=== PATIENT | male | born 1990 | race Caucasian/White ===

== ENCOUNTER 2019-05-05 17:11 | Emergency (ER) | payer OTHER, SELFPAY ==
[2019-05-05 17:12] VITALS: BP 132/85; PULSE 114; RESP 18; TEMP 37; O2SAT 98; BMI 32.4
--- NOTE | 2019-05-05 17:17 | NURSING ---
NO OLD EKGS
--- NOTE | 2019-05-05 17:20 | EKG12_ITS ---
Test Reason : Blood Pressure : / mmHG Vent. Rate : 107 BPM Atrial Rate : 107 BPM P-R Int : 146 ms QRS Dur : 078 ms QT Int : 322 ms P-R-T Axes : 024 042 024 degrees QTc Int : 429 ms Sinus tachycardia Otherwise normal ECG Confirmed by BARBARA JUAREZ, KRUPA ([id number]), videotape editor DARCIE MESA ([id number]) on 05/10/2019 8:45:19 AM Referred By: EZE Confirmed By:KRUPA JIMENEZ MD
--- NOTE | 2019-05-05 17:25 | RAD_ITS ---
STUDY: X-RAY CHEST REASON FOR EXAM: Male, 29 years old. Coughing up blood. TECHNIQUE: Single AP portable view of the chest. COMPARISON: None. FINDINGS: The lungs are clear and expanded. There is no demonstrated pleural abnormality. Normal size heart. Normal mediastinum and bobby. Normal visualized pulmonary arteries. Normal visualized aortic arch and descending thoracic aorta. Normal visualized thoracic spine. Normal visualized ribs, clavicles, and shoulders. There is no demonstrated abnormality of the visualized soft tissue structures of the upper abdomen. RAD/Chest 1 View (Portable) IMPRESSION: Normal x-ray examination of the chest. Electronically Signed: Cam Mayen MD at 17:42 EDT , Service support ,
[2019-05-05 17:31] VITALS: PULSE 112; RESP 20
[2019-05-05] MEDS: Ipratropium/Albuterol Sulfate 3 ML AMPUL.NEB INHALATION (17:31)
[2019-05-05] MEDS: 0.9% Normal Saline 1,000 ML 999 ML IV (17:40)
[2019-05-05 17:55] LABS: Absolute Neutrophil Count 5.2 X10^3/uL (2.0-7.7); Basophil# 0.02 X10^3/uL; Basophil% 0.2 % (0-1); Eosinophil# 0.29 X10^3/uL; Eosinophils% 3.2 % (0-5); Hematocrit 43.7 % (40-54); Hemoglobin 14.9 g/dl (13.0-16.5); Lymphocyte % 28.4 % (19-41); Mean Corp Hgb Conc 34.1 g/gl (32-36); Mean Corpuscular Hgb 30.6 pg (27.0-32.0); Mean Corpuscular Volume 89.7 fL (80-94); Monocyte# 1.02 X10^3/uL; Monocyte% 11.1 % (0-10); Neutrophil # 5.22 X10^3/uL (2.7-7.7); POSITIVE COUNT NO; POSITIVE DIFFERENTIAL NO; POSITIVE MORPHOLOGY NO; Platelet Count 208 K/mm3 (150-450); RBC Distribution Width CV 13.3 % (11.6-14.6); RBC Distribution Width SD 43.7 fl (35.1-43.9); Red Blood Count 4.87 M/mm3 (4.6-6.2); White Blood Count 9.2 K/mm3 (4.4-11.0)
[2019-05-05 18:04] LABS: Anion Gap 6 (5-15); BUN 16 mg/dL (7-18); BUN/Creat Ratio 15.4 RATIO (10-20); Calcium,Total 9.3 mg/dL (8.5-10.1); Chloride 105 mmol/L (98-107); Creatinine, Serum 1.04 mg/dL (0.70-1.30); EST Glomerular Filtration Rate 89 mL/min (>60); Est Glom Filt Rate - Afr Amer 107 mL/min (>60); Estimated Creatinine Clearance 89.52 ml/min; Glucose 91 mg/dL (74-106); Potassium 3.8 mmol/L (3.5-5.1); Sodium Level 140 mmol/L (136-145)
[2019-05-05 18:21] LABS: BNP,B-Type NATRIURETIC PEPTIDE 2.1 pg/mL (0-100)
--- NOTE | 2019-05-05 18:32 | ED.VIS.GEN ---
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 intake because of the harsh coughing but has no specific complaints this time Past Medical History - Allergies and Home Meds Allergies/Adverse Reactions: Allergies Penicillins Allergy (Verified 05/05/19 17:13) Hives Primary Care Physician: Care Physician,No Primary [Primary Care Provider] - Past Medical History: None Review of Systems General: Denies: Chills, Fever, Sweats Eyes: Denies: Visual changes - bilaterally, Diplopia ENT: Reports: Rhinorrhea. Denies: Sore throat Cardiovascular: Reports: Palpitations. Denies: Chest pain Respiratory: Reports: Cough. Denies: Dyspnea, Dyspnea on exertion Gastrointestinal: Denies: Abdominal pain, Nausea, Vomiting, Diarrhea, Melena, Hematochezia Genitourinary: Denies: Dysuria, Hematuria, Frequency Musculoskeletal: Denies: Back pain, Extremity Pain Skin: Denies: Rash, Wounds Neurological: Denies: Headache, Weakness, Numbness Physical Exam Vital Signs/Narrative: Vital Signs Temp Pulse Resp BP Pulse Ox 05/05/19 17:31 112 H 20 H 05/05/19 17:12 98.6 F 114 H 18 132/85 H 98 General: Well nourished, Well developed, No Acute Distress Head: Normocephalic, Atraumatic Eyes: Perrl, EOMI ENT: Moist mucous membranes, No rhinorrhea Neck: Supple, Nontender Cardiovascular: Regular rate, Regular rhythm, No murmurs Respiratory: No distress, CTA bilaterally, Chest nontender, - - Is resting comfortably the bed he has excellent excursion his nose is congested his lungs sound clear his general physical exam is unremarkable when he is not coughing he feels at his baseline and currently he is up not coughing not bringing up any mucus Abdomen: Soft, Nontender, Nondistended, Normal bowel sounds Back: Nontender, Normal Inspection Extremities: Nontender, No edema Skin: Normal color, No rash Neurological: Alert, Oriented x3, Cranial nerves II-XII grossly intact, Normal Strength, Normal Sensation Psychological: Normal affect, Normal Mood Diagnostic/Tx/Re-eval Chest X-Ray - ED: 1 View, Normal, Heart, Lungs - Rhythm Strip Rhythm Strip: Sinus Rhythm - Medical Decision Making The patient's screening labs chest x-ray are all unremarkable see those reports EKG shows a sinus with nothing acute, He is been treated with aerosols at this time there is no signs of anything life-threatening or acute he feels couple discharge home, he will be given a prescription for Levaquin as a [id number] medication Flonase Proventil and asked to follow-up with his outpatient providers tomorrow the next day and return for change in symptoms if he does not improve with these conservative medications he will start the Thursday or Thursday ED Disposition - Plan for ED Patient: Diagnosis: URI, acute Instructions: ED Reactive Airway Disease, ED Upper Resp Infec Abx Tx Prescriptions: Albuterol Inhaler [Ventolin Hfa] 1 - 2 puff INHALATION Q4H PRN PRN #1 inhaler PRN Reason: Wheezing Fluticasone 0.05% [Flonase Nasal [place]] 1 spray NASAL DAILY #1 nasal.sry levoFLOXacin tablet [Levaquin tablet] 750 mg PO DAILY #10 tab Referrals: Care Physician,No Primary [Primary Care Provider] - Manolo Melendez MD [STAFF PHYSICIAN] -
--- NOTE | 2019-05-05 18:38 | ED.DCSUM_ITS ---
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 intake because of the harsh coughing but has no specific complaints this time Past Medical History - Allergies and Home Meds Allergies/Adverse Reactions: Allergies Penicillins Allergy (Verified 05/05/19 17:13) Hives Primary Care Physician: Care Physician,No Primary [Primary Care Provider] - Past Medical History: None Review of Systems General: Denies: Chills, Fever, Sweats Eyes: Denies: Visual changes - bilaterally, Diplopia ENT: Reports: Rhinorrhea. Denies: Sore throat Cardiovascular: Reports: Palpitations. Denies: Chest pain Respiratory: Reports: Cough. Denies: Dyspnea, Dyspnea on exertion Gastrointestinal: Denies: Abdominal pain, Nausea, Vomiting, Diarrhea, Melena, Hematochezia Genitourinary: Denies: Dysuria, Hematuria, Frequency Musculoskeletal: Denies: Back pain, Extremity Pain Skin: Denies: Rash, Wounds Neurological: Denies: Headache, Weakness, Numbness Physical Exam Vital Signs/Narrative: Vital Signs Temp Pulse Resp BP Pulse Ox 05/05/19 17:31 112 H 20 H 05/05/19 17:12 98.6 F 114 H 18 132/85 H 98 General: Well nourished, Well developed, No Acute Distress Head: Normocephalic, Atraumatic Eyes: Perrl, EOMI ENT: Moist mucous membranes, No rhinorrhea Neck: Supple, Nontender Cardiovascular: Regular rate, Regular rhythm, No murmurs Respiratory: No distress, CTA bilaterally, Chest nontender, - - Is resting comfortably the bed he has excellent excursion his nose is congested his lungs sound clear his general physical exam is unremarkable when he is not coughing he feels at his baseline and currently he is up not coughing not bringing up any mucus Abdomen: Soft, Nontender, Nondistended, Normal bowel sounds Back: Nontender, Normal Inspection Extremities: Nontender, No edema Skin: Normal color, No rash Neurological: Alert, Oriented x3, Cranial nerves II-XII grossly intact, Normal Strength, Normal Sensation Psychological: Normal affect, Normal Mood Diagnostic/Tx/Re-eval Chest X-Ray - ED: 1 View, Normal, Heart, Lungs - Rhythm Strip Rhythm Strip: Sinus Rhythm - Medical Decision Making The patient's screening labs chest x-ray are all unremarkable see those reports EKG shows a sinus with nothing acute, He is been treated with aerosols at this time there is no signs of anything life-threatening or acute he feels couple discharge home, he will be given a prescription for Levaquin as a [id number] medication Flonase Proventil and asked to follow-up with his outpatient providers tomorrow the next day and return for change in symptoms if he does not improve with these conservative medications he will start the Thursday or Thursday ED Disposition - Plan for ED Patient: Diagnosis: URI, acute Instructions: ED Reactive Airway Disease, ED Upper Resp Infec Abx Tx Prescriptions: Albuterol Inhaler [Ventolin Hfa] 1 - 2 puff INHALATION Q4H PRN PRN #1 inhaler PRN Reason: Wheezing Fluticasone 0.05% [Flonase Nasal [place]] 1 spray NASAL DAILY #1 nasal.sry levoFLOXacin tablet [Levaquin tablet] 750 mg PO DAILY #10 tab Referrals: Care Physician,No Primary [Primary Care Provider] - Manolo Melendez MD [STAFF PHYSICIAN] -
[2019-05-05 19:13] VITALS: BP 145/90; PULSE 101; RESP 18; O2SAT 95
== END 2019-05-05 19:14 | disposition home or self-care (01) ==
PROVIDERS: Emergency Provider Emergency Medicine
DX: J06.9 Acute upper respiratory infection, unspecified (principal)
CPT/HCPCS: 71045; 80048; 83880; 84484; 85025; 93005; 94640; 96360; 96361; 99284; J7030

== ENCOUNTER 2021-05-25 01:11 | Emergency (ER) | payer MEDICAID, SELFPAY ==
[2021-05-25 01:11] VITALS: BP 158/113; PULSE 103; RESP 16; TEMP 36.4; O2SAT 98; BMI 49.4
--- NOTE | 2021-05-25 01:23 | RAD_ITS ---
EXAM: XR LEFT FOOT COMPLETE, 3 OR MORE VIEWS : 1990 CLINICAL INDICATION: injury TECHNIQUE: Frontal, lateral and oblique views of the left foot. This report was created using [employer] report generation technology. COMPARISON: None. FINDINGS: BONES/JOINTS: Unremarkable. No acute fracture. No subluxation. Normal alignment. Preservation of the joint space. No sclerotic or destructive changes observed. SOFT TISSUES: Unremarkable. No soft tissue swelling or gas. No radiopaque foreign body. RAD/Foot min 3 Views IMPRESSION: Negative left foot x-rays. at 0317 Reported and signed by: Mikal Weiss MD Electronically Signed: Mikal Weiss MD at 3:15 EDT Tel , Service support ,
--- NOTE | 2021-05-25 01:24 | RAD_ITS ---
EXAM: XR CHEST, 1 VIEW : 1990 CLINICAL INDICATION: chest pain TECHNIQUE: Frontal view of the chest. This report was created using [employer] report generation technology. COMPARISON: 05/05/2019 FINDINGS: LUNGS AND PLEURAL SPACES: Unremarkable. No consolidation or edema. No pneumothorax. No effusion. HEART: Unremarkable. Cardiac silhouette not enlarged. MEDIASTINUM: Central airways and mediastinal contour are unremarkable. BONES/JOINTS: Unremarkable. SOFT TISSUES: Unremarkable. RAD/Chest 1 View (Portable) IMPRESSION: No radiographic evidence of acute cardiopulmonary disease. at 0316 Reported and signed by: Mikal Weiss MD Electronically Signed: Mikal Weiss MD at 3:15 EDT Tel , Service support ,
--- NOTE | 2021-05-25 01:24 | EKG12_ITS ---
Test Reason : CP Blood Pressure : / mmHG Vent. Rate : 097 BPM Atrial Rate : 097 BPM P-R Int : 150 ms QRS Dur : 082 ms QT Int : 330 ms P-R-T Axes : 027 041 019 degrees QTc Int : 419 ms Normal sinus rhythm Normal ECG Confirmed by PILY JUAREZ, RAMONA ([id number]), acquisitions editor DARCIE MESA ([id number]) on 05/29/2021 10:42:29 AM Referred By: LACIE Confirmed By:RAMONA NASCIMENTO MD
[2021-05-25 01:55] LABS: Absolute Lymphocyte Count 2.04 X10^3/uL (0.83-4.51); Absolute Neutrophil Count 4.4 X10^3/uL (2.0-7.7); Basophil# 0.04 X10^3/uL; Basophil% 0.5 % (0-1); Eosinophil# 0.14 X10^3/uL; Eosinophils% 1.9 % (0-5); Hematocrit 41.2 % (40-54); Hemoglobin 13.9 g/dL (13.0-16.5); Lymphocyte # 2.04 X10^3/ul (0.83-4.51); Mean Corp Hgb Conc 33.7 g/dL (32-36); Mean Corpuscular Hgb 30.4 pg (27.0-32.0); Mean Corpuscular Volume 90.2 fL (80-94); Mean Platelet Vol. 11.1 fl (6.2-12.0); Monocyte% 8.2 % (0-10); NRBC Flagged by Analyzer 0 % (0-5); Neutrophil # 4.44 X10^3/uL (2.7-7.7); Platelet Count 168 K/mm3 (150-450); RBC Distribution Width CV 12.5 % (11.6-14.6); RBC Distribution Width SD 40.7 fl (35.1-43.9); Red Blood Count 4.57 M/mm3 (4.6-6.2); White Blood Count 7.3 K/mm3 (4.4-11.0)
[2021-05-25 02:12] LABS: Anion Gap 5 (5-15); BUN 12 mg/dL (7-18); BUN/Creat Ratio 12.9 RATIO (10-20); Calcium,Total 9.3 mg/dL (8.5-10.1); Chloride 105 mmol/L (98-107); Creatinine, Serum 0.93 mg/dL (0.70-1.30); EST Glomerular Filtration Rate 99 mL/min (>60); Est Glom Filt Rate - Afr Amer 120 mL/min (>60); Glucose 241 mg/dL (74-106); Potassium 3.6 mmol/L (3.5-5.1); Sodium Level 140 mmol/L (136-145); Troponin-I HS 4.8 pg/mL (3.0-78.5)
--- NOTE | 2021-05-25 02:14 | RAD_ITS ---
[employer] Unformatted Report Format: Options: n 2f 2i act cap dr krause wm wcta sl lj Gender: Male : 1990 Exam: XR Ankle Min 3 Views Left Comparison: History: injury Contrast: There is soft tissue swelling over the medial and lateral malleolus. Impression. Soft tissue swelling with no osseous abnormalities. at 0308 Reported and signed by: Mikal Weiss MD Electronically Signed: Mikal Weiss MD at 3:07 EDT Tel , Service support , RAD/Ankle min 3 Views
--- NOTE | 2021-05-25 03:11 | EX.ED.DYSGE1 ---
HPI History of Present Illness Chief Complaint: Lower Extremity Injury Detail of Chief Complaint: Left ankle pain and chest pain Informant: patient Onset/Context/Timing Onset: Today Context: Sudden Onset Current Severity: Mild Maximum Severity: Moderate Narrative Narrative: Patient presents secondary to left ankle pain. He rolled his left ankle while walking tonight. He has been able to bear weight but has antalgic gait. He denies any other injury. also mentions the patient has been complaining of chest pain for the past couple weeks. He states it will come on rather abruptly, last just a few seconds, and then resolve. [facility] Medical History GERD (gastroesophageal reflux disease) Home Medications albuterol sulfate 1 - 2 puff INHALATION Q4H PRN PRN #1 inhaler 05/05/19 [Rx Last Taken Unknown] fluticasone propionate 1 spray NASAL DAILY #1 nasal.sry 05/05/19 [Rx Last Taken Unknown] hydrocodone-acetaminophen 1 tab PO Q6H PRN 3 Days #10 tab 05/25/21 [Rx Last Taken Unknown] naproxen [Naprosyn] 500 mg PO BID PRN #20 tab 05/25/21 [Rx Last Taken Unknown] omeprazole 40 mg PO DAILY 05/25/21 [History Last Taken Unknown] Allergy/AdvReac Type Severity Reaction Status Date / Time Penicillins Allergy Hives Verified 05/25/21 01:13 Social History Smoking Status: Never smoker ROS ROS ED Constitutional Constitutional ED: Denies chills or fever(s) Eyes Eyes: Denies change in vision ENT ENT ED: Denies sore throat Cardiovascular Cardiovascular: Reports chest pain; Denies palpitations or racing heartbeat Respiratory/Chest Respiratory/Chest: Denies cough or dyspnea Gastrointestinal Gastrointestinal: Denies abdominal pain, diarrhea, nausea or vomiting Genitourinary Genitourinary ED: Denies dysuria Musculoskeletal Musculoskeletal: Reports arthralgias; Denies back pain Integumentary Denies rash Neurologic Neurologic: Denies headache(s) or weakness Psychiatric Psychiatric: Denies anxiety or depression Endocrine Endocrinology: Denies polydipsia or polyuria Allergic/Immunologic Allergic/Immunologic ED: Denies urticaria EXAM Physical Exam Const Vital Signs: 05/25/21 01:11 05/25/21 01:52 05/25/21 03:21 Temperature 97.6 F L Temperature Source Temporal Pulse Rate 103 H 97 Respiratory Rate 16 18 Blood Pressure 158/113 H 161/108 H Blood Pressure Mean 128 Pulse Ox 98 97 Oxygen Delivery Method Room Air Room Air Positive well nourished and well developed General Appearance ED: well developed HEENT Reports normocephalic and head/scalp atraumatic Eyes PERRL and EOMs intact bilaterally Neck supple Chest Wall inspection of chest normal and palpation of chest normal Resp normal respiratory effort and clear to auscultation bilaterally Cardio regular rate and regular rhythm GI normal to inspection, nondistended, normoactive bowel sounds Palpation: soft Extremity Extremity Narrative: Tenderness palpation left lateral malleolus. Mild edema noted. No tenderness of the proximal fibula. Neuro oriented x3 and no sensory deficits noted Sensorium / Orientation: alert Motor Exam: strength 5/5 throughout Psych mental status grossly normal Skin no rashes or lesions noted MDM MDM MDM Narrative Medical decision making narrative: EKG, chest x-ray, labs are ordered to evaluate his chest pain. Left foot and ankle x-rays are ordered to evaluate his injury. Lab Data Attestation: I reviewed the patient's lab results. Labs: Laboratory Results - last 24 hr 05/25/21 05/25/21 01:50 01:50 WBC 7.3 RBC 4.57 L Hgb 13.9 Hct 41.2 MCV 90.2 MCH 30.4 MCHC 33.7 RDW Std Deviation 40.7 RDW Coeff of Abi 12.5 Plt Count 168 MPV 11.1 Immature Gran % (Auto) 0.400 Neut % (Auto) 61.0 Lymph % (Auto) 28.0 [place] % (Auto) 8.2 Eos % (Auto) 1.9 Baso % (Auto) 0.5 Absolute Neuts (auto) 4.4 Absolute Lymphs (auto) 2.04 Nucleated RBC % 0 Sodium 140 Potassium 3.6 Chloride 105 Carbon Dioxide 30.0 Anion Gap 5 BUN 12 Creatinine 0.93 Estim Creat Clear Calc 94.60 Est GFR (MDRD) Af Amer 120 Est GFR (MDRD) Non-Af 99 BUN/Creatinine Ratio 12.9 Glucose 241 H Calcium 9.3 Troponin I High Sens 4.8 Radiography Chest X-Ray - ED: 1 View, Read by ED Physician, Normal, Heart, Lungs and Mediastinum Diagnostic Testing: Radiology Impression Foot X-Ray 05/25/21 01:23 IMPRESSION: Negative left foot x-rays. at 0317 Reported and signed by: Mikal Weiss MD Electronically Signed: Mikal Weiss MD at 3:15 EDT Tel , Service support , Chest X-Ray 05/25/21 01:24 IMPRESSION: No radiographic evidence of acute cardiopulmonary disease. at 0316 Reported and signed by: Mikal Weiss MD Electronically Signed: Mikal Weiss MD at 3:15 EDT Tel , Service support , Ankle X-Ray 05/25/21 02:14 EKG Initial EKG: Attestation: I personally reviewed and interpreted this EKG as follows: Interpretation: Sinus Rhythm (Sinus at 97 with no acute ischemia.) Treatment and Re-Evaluation Comments:: Patient had taken ibuprofen prior to arrival. Ice pack is applied to the left ankle. Left foot and ankle x-rays per my interpretation reveal no acute fracture. Chest x-ray reveals no acute cardiopulmonary disease. Test results discussed with patient and family at bedside. Cardiac work-up was unremarkable. Air stirrup splint is applied. Patient declines crutches. Prescriptions for analgesics are sent to the pharmacy for him. Discharge Plan Triage Chief Complaint: Lower Extremity Injury ED Provider: Kat Montoya Dx/Rx/DC Orders Clinical Impression: Left ankle sprain, Chest pain Instructions: ED Chest Pain, Noncardiac, ED Ankle Sprain (Adult) Prescriptions: New naproxen [Naprosyn] 500 mg tablet 500 mg PO BID PRN (Reason: pain) Qty: 20 RF: 0 hydrocodone-acetaminophen 5-325 mg tablet 1 tab PO Q6H PRN (Reason: pain) 3 Days Qty: 10 RF: 0 No Action albuterol sulfate 1 INHALER inhaler 1 - 2 puff inhalation Q4H PRN PRN (Reason: Wheezing) Qty: 1 RF: 0 fluticasone propionate 1 SPRAY spray,suspension 1 spray NASAL DAILY Qty: 1 RF: 0 omeprazole 40 mg capsule,delayed release(DR/EC) 40 mg PO DAILY RF: 0 Primary Care Provider: Elizabet Wright NP Referrals: Ryan Jimenez DO [STAFF PHYSICIAN] - 1 Week if not improving Elizabet Wright NP, [facility] [Primary Care Provider] - Disposition Disposition: Home, Self Care Discharge Date/Time: 05/25/21 03:27
[2021-05-25 03:21] VITALS: BP 161/108; PULSE 97; RESP 18; O2SAT 97
== END 2021-05-25 03:27 | disposition home or self-care (01) ==
PROVIDERS: Emergency Provider Emergency Medicine; PCP Nurse Practitioner Family
DX: S93.402A Sprain of unspecified ligament of left ankle, initial encounter (principal); R07.9 Chest pain, unspecified; K21.9 Gastro-esophageal reflux disease without esophagitis; X50.1XXA Overexertion from prolonged static or awkward postures, initial encounter; Y93.01 Activity, walking, marching and hiking; Y92.89 Other specified places as the place of occurrence of the external cause; Y99.8 Other external cause status
CPT/HCPCS: 71045; 73610; 73630; 80048; 84484; 85025; 93005; 99285; A4216

== ENCOUNTER 2021-08-05 21:57 | Emergency (ER) | payer MEDICAID, SELFPAY ==
[2021-08-05 21:57] VITALS: BP 132/59; PULSE 96; RESP 18; TEMP 37.4; O2SAT 95; BMI 42.9
--- NOTE | 2021-08-05 22:15 | ED.RN ---
pt yells out from waiting room nurse how much longer im in so much pain emotional support provided, patient told that staff was cleaning multiple rooms at this time for patients. pt yells this is ridiculous im in so much pain pt begins to hyperventilate, patient instructed to slow down his breathing. continued emotional support provided. Will continue to monitor until patient is placed in ED room.
--- NOTE | 2021-08-05 22:40 | CT_ITS ---
STUDY: CT ABDOMEN AND PELVIS WITH CONTRAST REASON FOR EXAM: Male, 31 years old. LLQ pain RADIATION DOSAGE (If Supplied By Facility): CTDIvol = ( 20.40 ) mGy, DLP = ( 1364.47 ) mGycm TECHNIQUE: Transaxial images were obtained from the dome of the diaphragm to the symphysis pubis without oral contrast. IV 100mL Isovue-300 was administered. Sagittal and coronal images were reconstructed. Individualized dose optimization techniques were used for this CT. COMPARISON: None. FINDINGS: Minimal posterior dependent atelectasis. Remainder of the lung bases are clear. Normal cardiac size. Cystic structure along the right heart border measuring 6.4 x 2.3 cm compatible with pericardial cyst. Diffuse fatty liver, otherwise normal liver. Normal gallbladder and extrahepatic biliary system. Normal spleen. Normal pancreas. Normal bilateral adrenal glands. Normal right kidney. Normal left kidney. Normal visualized stomach. Nonspecific mild distention of the small bowel with borderline thickening of the wall, cannot exclude enteritis. Normal colon. The appendix is visualized and appears normal. Normal abdominal aorta. Normal inferior vena cava. Normal retroperitoneum. Normal urinary bladder. Normal visualized prostate gland. Normal abdominal wall. Normal osseous structures. CT/Abdomen/Pelvis W IV Cont ONLY IMPRESSION: Possible mild nonspecific enteritis. No acute appendicitis or bowel obstruction. Mild diffuse fatty liver. Remainder of abdominal viscera are unremarkable. Electronically Signed: Shavon Pritchett MD at 0:50 EDT , Service support ,
[2021-08-05] MEDS: 0.9% Normal Saline 1,000 ML 1000 ML IV (23:01)
[2021-08-05] MEDS: Morphine 4 MG/ML Syringe IV (23:01)
[2021-08-05] MEDS: Ondansetron 4 MG/2 ML Vial IV (23:02)
[2021-08-05 23:04] LABS: Absolute Lymphocyte Count 0.92 X10^3/uL (0.83-4.51); Absolute Neutrophil Count 9.7 X10^3/uL (2.0-7.7); Basophil# 0.03 X10^3/uL; Basophil% 0.3 % (0-1); Eosinophil# 0.05 X10^3/uL; Eosinophils% 0.4 % (0-5); Hematocrit 45.8 % (40-54); Hemoglobin 15.1 g/dL (13.0-16.5); Lymphocyte # 0.92 X10^3/ul (0.83-4.51); Lymphocyte % 7.9 % (19-41); Mean Corpuscular Hgb 30.1 pg (27.0-32.0); Mean Corpuscular Volume 91.4 fL (80-94); Mean Platelet Vol. 11.1 fl (6.2-12.0); Monocyte# 0.94 X10^3/uL; Monocyte% 8.1 % (0-10); NRBC Flagged by Analyzer 0 % (0-5); Platelet Count 162 K/mm3 (150-450); RBC Distribution Width CV 12.4 % (11.6-14.6); RBC Distribution Width SD 41.3 fl (35.1-43.9); Red Blood Count 5.01 M/mm3 (4.6-6.2); White Blood Count 11.7 K/mm3 (4.4-11.0)
[2021-08-05 23:20] LABS: ALB/GLOB Ratio 0.9 RATIO (0.9-2.4); AST(SGOT) 70 U/L (15-37); Alanine Aminotransfer ALT/SGPT 222 U/L (16-61); Alkaline Phosphatase 86 U/L (45-117); Anion Gap 5 (5-15); BUN 14 mg/dL (7-18); BUN/Creat Ratio 15.1 RATIO (10-20); Calcium,Total 8.7 mg/dL (8.5-10.1); Chloride 103 mmol/L (98-107); Creatinine, Serum 0.93 mg/dL (0.70-1.30); EST Glomerular Filtration Rate 100 mL/min (>60); Est Glom Filt Rate - Afr Amer 120 mL/min (>60); Globulin 4.3 g/dL (2.2-4.2); Glucose 197 mg/dL (74-106); Lipase 128 U/L (73-393); Potassium 4.2 mmol/L (3.5-5.1); Protein, Total 8.3 g/dL (6.4-8.2); Sodium Level 138 mmol/L (136-145)
[2021-08-06 00:45] LABS: Red Blood Cells-Urine 0 SEEN /hpf (0-5); Squamous Epithelial Cells - UA 0 SEEN /hpf (0-5)
[2021-08-06 00:46] LABS: Color, Urine Yellow (Yellow); Glucose, Dipstick Normal (Normal); Ketone-Dipstick Negative (Negative); Leukocyte Esterase-Dipstick 25 /ul (Negative); Nitrite-Dipstick Negative (Negative); Occult Blood-Urine Negative /ul (Negative); Protein-Dipstick 15 mg/dl (Negative); Specific Gravity, Urine 1.015 (1.002-1.030); Urine Clarity Clear (Clear); Urine Urobilinogen 1 mg/dl (Normal)
[2021-08-06 00:48] LABS: Urine Bilirubin Dipstick 1 mg/dL (Negative)
[2021-08-06 00:49] VITALS: BP 138/75
[2021-08-06 01:01] LABS: Bacteria 2+ /hpf (None Seen); Hyaline Cast 0-5 SEEN /lpf (0-5); Mucous, Urine 2+ /hpf (<or=2+); White Blood Cells 0-5 SEEN /hpf (0-5)
--- NOTE | 2021-08-06 01:37 | ED.VIS.GI ---
HPI HPI - GI History of Present Illness Chief Complaint: Abd Pain Narrative Narrative: Patient presenting for evaluation secondary to abdominal pain. Patient states that over the course the last 24 hours he has had an onset of abdominal pain. He states that its been associated with nonbloody nonbilious emesis, as well as loose watery diarrhea. He woke up this morning with it, felt that he was getting better around noon and then stated that it again got worse throughout the course of the night. Patient states that he has crampy intermittent severe abdominal pain that he describes as sharp and locates in his left lower quadrant. No real exacerbating relieving factors no fevers no sick contacts. Patient does have a history of hernia surgery in the past. Review of systems otherwise negative. [facility] Medical History GERD (gastroesophageal reflux disease) Home Medications albuterol sulfate 1 - 2 puff INHALATION Q4H PRN PRN #1 inhaler 05/05/19 [Rx Last Taken Unknown] fluticasone propionate 1 spray NASAL DAILY #1 nasal.sry 05/05/19 [Rx Last Taken Unknown] hydrocodone-acetaminophen 1 tab PO Q6H PRN 3 Days #10 tab 05/25/21 [Rx Last Taken Unknown] naproxen [Naprosyn] 500 mg PO BID PRN #20 tab 05/25/21 [Rx Last Taken Unknown] omeprazole 40 mg PO DAILY 05/25/21 [History Last Taken Unknown] dicyclomine 20 mg PO TIDAC #20 capsule 08/06/21 [Rx Last Taken Unknown] ondansetron 4 mg PO Q8H PRN PRN #10 tab 08/06/21 [Rx Last Taken Unknown] Allergy/AdvReac Type Severity Reaction Status Date / Time Penicillins Allergy Hives Verified 08/05/21 22:01 Social History Smoking Status: Never smoker ROS ROS ED Constitutional Constitutional ED: Denies chills or fever(s) ENT ENT ED: Denies sore throat Cardiovascular Cardiovascular: Denies chest pain Respiratory/Chest Respiratory/Chest: Denies cough or dyspnea Gastrointestinal Gastrointestinal: Reports abdominal pain, diarrhea, nausea and vomiting Genitourinary Genitourinary ED: Denies dysuria, hematuria or urinary frequency Musculoskeletal Musculoskeletal: Denies myalgias Integumentary Denies rash Neurologic Neurologic: Denies paresthesias or weakness Psychiatric Psychiatric: Denies depression Endocrine Endocrinology: Denies polyuria Hematologic/Lymphatic Hematologic/Lymphatic: Denies easy bleeding or easy bruising Allergic/Immunologic Allergic/Immunologic ED: Denies urticaria EXAM Physical Exam Const Vital Signs: 08/05/21 21:57 08/06/21 00:49 Temperature 99.4 F H Temperature Source Oral Pulse Rate 96 Respiratory Rate 18 Blood Pressure 132/59 H 138/75 H Blood Pressure Mean 83 96 Pulse Ox 95 Oxygen Delivery Method Room Air Positive well nourished, well developed and obese Constitutional Narrative: Heavyset male who appears very uncomfortable who is lying in the right lateral decubitus position on my arrival in the room General Appearance ED: well developed and NAD Nutritional Appearance: obese HEENT Reports dry mucous membranes normocephalic and atraumatic Mouth ED: Yes dry mucous membranes Mouth: dry mucous membranes Eyes EOMs intact bilaterally General Eye ED: Negative for pale conjunctiva or scleral icterus Neck no lymphadenopathy and supple Resp normal respiratory effort and clear to auscultation bilaterally Cardio regular rate, regular rhythm, no murmurs and peripheral pulses 2+ throughout GI non-distended and no masses Palpation: soft and tender LLQ; Negative for guarding, rigid or rebound tenderness present Back/Spine no CVA tenderness Extremity full ROM General Extremety ED: Negative for edema General Extremity: Negative for edema Neuro moves all extremities and no sensory deficits noted Sensorium / Orientation: alert, oriented to person, oriented to place and oriented to time Motor Exam: strength 5/5 throughout Psych mental status grossly normal Skin Rashes: no rashes MDM MDM MDM Narrative Medical decision making narrative: Patient presenting for evaluation secondary to abdominal pain. He did have reproducible abdominal pain on physical exam, IV was established laboratory studies were obtained patient appeared clinically dry he was given IV fluids morphine and Zofran. CBC demonstrates modest leukocytosis at 11.7. Chemistry shows normal renal function no significant evidence of electrolyte derangement patient's ALT was modestly elevated at 222 AST at 70 bilirubin was found to be normal. Patient's urinalysis was negative for infection. A CT abdomen and pelvis was performed on the patient which shows some evidence of enteritis, but no evidence of diverticulitis or appendicitis or other acute inflammatory or surgical process. Repeat evaluation of the patient after medication shows significant improvement and a continued nonsurgical abdomen. Patient symptoms at this point likely are secondary to enteritis. Patient be discharged with a course of Zofran and Bentyl. He understands signs symptoms which to return, he was educated about a capital BRAT diet. Patient was discharged in stable condition. Lab Data Labs: Laboratory Results - last 24 hr 08/05/21 08/05/21 08/06/21 22:55 22:55 00:20 WBC 11.7 H RBC 5.01 Hgb 15.1 Hct 45.8 MCV 91.4 MCH 30.1 MCHC 33.0 RDW Std Deviation 41.3 RDW Coeff of Abi 12.4 Plt Count 162 MPV 11.1 Immature Gran % (Auto) 0.300 Neut % (Auto) 83.0 H Lymph % (Auto) 7.9 L [place] % (Auto) 8.1 Eos % (Auto) 0.4 Baso % (Auto) 0.3 Absolute Neuts (auto) 9.7 H Absolute Lymphs (auto) 0.92 Nucleated RBC % 0 Sodium 138 Potassium 4.2 Chloride 103 Carbon Dioxide 30.0 Anion Gap 5 BUN 14 Creatinine 0.93 Estim Creat Clear Calc 94.60 Est GFR (MDRD) Af Amer 120 Est GFR (MDRD) Non-Af 100 BUN/Creatinine Ratio 15.1 Glucose 197 H Calcium 8.7 Total Bilirubin 0.40 AST 70 H ALT 222 H Alkaline Phosphatase 86 Total Protein 8.3 H Albumin 4.0 Globulin 4.3 H Albumin/Globulin Ratio 0.9 Lipase 128 Urine Color Yellow Urine Clarity Clear Urine pH 5.0 Ur Specific [place] 1.015 Urine Protein 15 H Urine Glucose (UA) Normal Urine Ketones Negative Urine Occult Blood Negative Urine Nitrite Negative Urine Bilirubin 1 H Urine Urobilinogen 1 H Ur Leukocyte Esterase 25 H Urine RBC 0 SEEN Urine WBC 0-5 SEEN Ur Squamous Epith Cells 0 SEEN Urine Bacteria 2+ Hyaline Casts 0-5 SEEN Urine Mucus 2+ Radiography Diagnostic Testing: Radiology Impression Abdomen/Pelvis CT 08/05/21 22:40 IMPRESSION: Possible mild nonspecific enteritis. No acute appendicitis or bowel obstruction. Mild diffuse fatty liver. Remainder of abdominal viscera are unremarkable. Electronically Signed: Shavon Pritchett MD at 0:50 EDT , Service support , Discharge Plan Triage Chief Complaint: Abd Pain ED Provider: James Simpson Dx/Rx/DC Orders Clinical Impression: Enteritis Instructions: ED Gastroenteritis, Noninfectious Prescriptions: New dicyclomine 10 mg capsule 20 mg PO TIDAC Qty: 20 RF: 0 ondansetron 4 mg tablet,disintegrating 4 mg PO Q8H PRN PRN (Reason: Nausea) Qty: 10 RF: 0 No Action albuterol sulfate 1 INHALER inhaler 1 - 2 puff inhalation Q4H PRN PRN (Reason: Wheezing) Qty: 1 RF: 0 fluticasone propionate 1 SPRAY spray,suspension 1 spray NASAL DAILY Qty: 1 RF: 0 omeprazole 40 mg capsule,delayed release(DR/EC) 40 mg PO DAILY RF: 0 naproxen [Naprosyn] 500 mg tablet 500 mg PO BID PRN (Reason: pain) Qty: 20 RF: 0 hydrocodone-acetaminophen 5-325 mg tablet 1 tab PO Q6H PRN (Reason: pain) 3 Days Qty: 10 RF: 0 Stand Alone Forms: ED Work / School Excuse Primary Care Provider: Elizabet Wright NP Referrals: Elizabet Wright NP, PRODUCT DEVELOPMENT TECHNICIAN-C [Primary Care Provider] - 3-5 Days if not improving Disposition Disposition: Home, Self Care Discharge Date/Time: 08/06/21 01:55
[2021-08-06] MEDS: Ondansetron 4 MG/2 ML Vial IV (01:55)
== END 2021-08-06 01:55 | disposition home or self-care (01) ==
PROVIDERS: Emergency Provider Emergency Medicine; PCP Nurse Practitioner Family
DX: K52.9 Noninfective gastroenteritis and colitis, unspecified (principal); K21.9 Gastro-esophageal reflux disease without esophagitis; Z79.899 Other long term (current) drug therapy; E66.9 Obesity, unspecified
CPT/HCPCS: 74177; 80053; 81001; 83690; 85025; 96361; 96374; 96375; 96376; 99285; J7030; Q9967; A4216; J2405

== ENCOUNTER 2025-07-27 22:10 | Emergency (ER) | payer MEDICAID, SELFPAY ==
[2025-07-27 22:10] VITALS: BP 197/112; PULSE 100; RESP 16; TEMP 36.4; O2SAT 97; BMI 44.2
--- NOTE | 2025-07-27 22:27 | EX.ED.VIS.PS ---
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 States he has never been hospitalized for psychiatric reasons in the past. Over the past few days, he has had increasing thoughts of depression and suicide. He endorses insomnia, decreased appetite, and anhedonia. He has thought about suicide by crashing his car. He denies any physical symptoms but states he is feeling helpless, hopeless, and overwhelmed over past and current trauma. He states he called the counseling center for an intake appointment, but felt he could not wait any longer so presents to the emergency department with depression and increasing suicidal ideation. [facility] Medical History Depression Essential (primary) hypertension Obesity IBS (irritable bowel syndrome) Pericardial cyst Syncope Umbilical hernia KALEY (obstructive sleep apnea) Insomnia Hiatal hernia Globus syndrome Adenopathy Hypertriglyceridemia Anxiety Type 2 diabetes mellitus Chest pain GERD (gastroesophageal reflux disease) Home Medications ?Medication ?Instructions ?Recorded ?Last Taken ?Type omeprazole 40 mg capsule,delayed 40 mg PO DAILY 05/25/21 Unknown History release ondansetron 4 mg disintegrating 4 mg PO Q8H PRN PRN Nausea #10 tabs 08/06/21 Unknown Rx tablet dulaglutide 0.75 mg/0.5 mL 0.75 mg subcut QWEEK 09/15/22 Unknown History subcutaneous pen injector (Trulicity) lisinopril 10 mg tablet 10 mg PO DAILY 09/15/22 Unknown History cetirizine 10 mg capsule (All Day 10 mg PO QDAY 05/25/25 Unknown History Allergy (cetirizine)) sertraline 50 mg tablet 50 mg PO QDAY 05/25/25 Unknown History Allergy/AdvReac Type Severity Reaction Status Date / Time Penicillins Allergy Hives Verified 07/27/25 22:13 Family History Mother Diabetes Heart disease Grandmother Diabetes Heart disease Grandfather Diabetes Heart disease Surgical History S/P epigastric hernia repair, follow-up exam (~1998) Social History Smoking Status: Never smoker alcohol intake: never substance use type: does not use ROS ROS ED ROS Narrative Review of systems positive for feelings of helplessness hopelessness, and being overwhelmed. Positive suicidal ideation. Positive insomnia and anhedonia as well as decreased appetite. Increasing depression. EXAM Physical Exam Narrative Exam Narrative: Afebrile. Vital signs noted. Nontoxic-appearing. Cardiovascular examination reveals a regular rate and rhythm. Lungs clear to auscultation bilaterally. Abdomen is soft nontender with positive bowel sounds. No guarding or rebound. Neurological examination nonfocal nonlateralizing. Positive suicidal ideation on psychiatric examination. Mildly flat affect. No internal stimulation or hallucinations. Const Vital Signs: 07/27/25 22:10 07/27/25 23:08 Temperature 97.6 F L Temperature Source Temporal Pulse Rate 100 67 Respiratory Rate 16 14 Blood Pressure 197/112 H 175/95 H Blood Pressure Mean 140 121 Pulse Ox 97 98 Oxygen Delivery Method Room Air Room Air MDM MDM MDM Narrative Medical decision making narrative: I do not feel that differential diagnosis is applicable. He presents with suicidal ideation and depression. Medical clearance labs will be obtained and reviewed. Once he is medically cleared, he will be evaluated by crisis. I reviewed his laboratory work and his CBC is grossly unremarkable, CMP significant for glucose of 145 with ALT of 85 which I think is nonspecific, normal anion gap of 15, BUN and creatinine normal. Alcohol is negative at less than 10.1, urine for drugs of abuse is also negative. At this point in time, I do feel he is medically cleared for evaluation by crisis. Patient will be signed out to the oncoming physician, Dr. Konrad Chase, to make final disposition on this patient which I anticipate his placement in a psychiatric facility for stabilization and his suicidal ideation with plan. History & Record Review Discussion w/independent historian: Patient Additional record(s) reviewed:: Prior ED visit (No prior visits for psychiatric reasons.) Lab Data Attestation: I reviewed the patient's lab results. Labs: Laboratory Results - last 24 hr 07/27/25 22:29 WBC 8.1 RBC 4.97 Hgb 15.4 Hct 44.3 MCV 89.1 MCH 31.0 MCHC 34.8 RDW Std Deviation 39.8 RDW Coeff of Abi 12.2 Plt Count 186 MPV 10.8 Immature Gran % (Auto) 0.400 Neut % (Auto) 54.6 Lymph % (Auto) 33.2 [place] % (Auto) 9.1 Eos % (Auto) 2.1 Baso % (Auto) 0.6 Absolute Neuts (auto) 4.4 Absolute Lymphs (auto) 2.69 Nucleated RBC % 0 Sodium 140 Potassium 4.0 Chloride 104 Carbon Dioxide 21.2 Anion Gap 15 BUN 13 Creatinine 0.82 Estim Creat Clear Calc 148.57 Est GFR (MDRD) Non-Af 116 BUN/Creatinine Ratio 16.3 Glucose 145 H Calcium 9.7 Total Bilirubin 0.23 AST 33 ALT 85 H Alkaline Phosphatase 71 Total Protein 8.0 Albumin 4.5 Globulin 3.5 Albumin/Globulin Ratio 1.3 Urine Opiates Screen NEGATIVE U Buprenorphine Qual NEGATIVE Ur Oxycodone Screen NEGATIVE Urine Methadone Screen NEGATIVE Urine Fentanyl Screen NEGATIVE Ur Barbiturates Screen NEGATIVE Ur Phencyclidine Scrn NEGATIVE Ur Amphetamines Screen NEGATIVE U Benzodiazepines Scrn NEGATIVE Urine Cocaine Screen NEGATIVE U Cannabinoids Screen NEGATIVE Ethyl Alcohol < 10.1 Discharge Plan Triage Chief Complaint: Suicidal ED Provider: Miguel Guajardo Dx/Rx/DC Orders Prescriptions: No Action Trulicity 0.75 mg/0.5 mL pen injector 0.75 mg subcut QWEEK lisinopril 10 mg tablet 10 mg PO DAILY sertraline 50 mg tablet 50 mg PO QDAY All Day Allergy (cetirizine) 10 mg capsule 10 mg PO QDAY omeprazole 40 mg capsule,delayed release(DR/EC) 40 mg PO DAILY Patient Comments: TAKE 1 CAPSULE BY MOUTH EVERY DAY ondansetron 4 mg tablet,disintegrating 4 mg PO Q8H PRN PRN (Reason: Nausea) Qty: 10 0RF Primary Care Provider: Leroy Shannon Referrals: Leroy Shannon MD [Primary Care Provider] - Print Language: [place]ib[place]
[2025-07-27 22:41] LABS: Hematocrit 44.3 % (40-54); Hemoglobin 15.4 g/dL (13.0-16.5); Immature Granulocytes Count 0.030 X10^3/uL (0.0-0.0); Mean Corp Hgb Conc 34.8 g/dL (32-36); Mean Corpuscular Volume 89.1 fL (80-94); Mean Platelet Vol. 10.8 fl (6.2-12.0); NRBC Flagged by Analyzer 0 % (0-5); Platelet Count 186 K/mm3 (150-450); RBC Distribution Width CV 12.2 % (11.6-14.6); RBC Distribution Width SD 39.8 fl (35.1-43.9); Red Blood Count 4.97 M/mm3 (4.6-6.2); White Blood Count 8.1 K/mm3 (4.4-11.0)
[2025-07-27 23:08] VITALS: BP 175/95; PULSE 67; RESP 14; O2SAT 98
[2025-07-27 23:22] LABS: Alcohol, Blood (Medical)-Serum < 10.1 mg/dL (<=10.0)
[2025-07-27 23:25] LABS: Barbiturate Urine NEGATIVE (< 200 ng/mL); Benzodiazepine Urine NEGATIVE (< 200 ng/mL); PCP Urine NEGATIVE (< 25 ng/mL); THC Urine NEGATIVE (< 50 ng/mL)
[2025-07-27 23:27] LABS: AST(SGOT) 33 U/L (<=37); Alanine Aminotransfer ALT/SGPT 85 U/L (<=46); Albumin, Serum 4.5 g/dL (3.5-5.0); Alkaline Phosphatase 71 U/L (40-129); Anion Gap 15 (5-15); BUN 13 mg/dL (4-19); BUN/Creat Ratio 16.3 RATIO (10-20); Calcium,Total 9.7 mg/dL (7.6-11.0); Carbon Dioxide 21.2 mmol/L (21.0-32.0); Chloride 104 mmol/L (98-108); Estimated Creatinine Clearance 148.57 ml/min (50-250); Globulin 3.5 g/dL (2.2-4.2); Glucose 145 mg/dL (70-99); Potassium 4.0 mmol/L (3.3-5.1)
--- NOTE | 2025-07-27 23:33 | PCA ---
Addendum entered by Gricelda Candelaria 07/28/25 01:30: PT TO BE PLACED, REFERRED TO [facility] AND [facility]. ROBERT WITH THE [facility] STATED [facility] CAN ACCEPT AFTER 8AM, WAITING FOR [facility]. Original Note: CRISIS CALLED, CHART FAXED
[2025-07-28] VITALS: BP 169/85; PULSE 90; RESP 16; O2SAT 95
[2025-07-28 02:26] VITALS: BP 148/68
--- NOTE | 2025-07-28 04:24 | PCA ---
ACCEPTED [facility], WILL NOT RECEIVE ACCEPTING INFORMATION UNTIL AM ACCORDING TO ROBERT CASTLE.
--- NOTE | 2025-07-28 07:22 | PCA ---
RO CALLED AND SAID SHE ALSO SENT A REFERRAL OUT TO [facility]
--- NOTE | 2025-07-28 09:21 | PCA ---
RO HAS A REFREALL OUT AT [facility] BECAUSE THE OTHER TWO PLACES ARE WAITING ON BED
--- NOTE | 2025-07-28 09:41 | PCA ---
ACCEPTED AT [facility] ETA [id number]
[2025-07-28 10:00] VITALS: BP 138/78; PULSE 62; RESP 16; TEMP 36.6; O2SAT 98; O2SAT 99
--- NOTE | 2025-07-28 12:11 | PCA ---
CALLED PHYSICIANS FOR AN UPDATED ETA THEY SAID 45 MINS TO AN HR FROM 1152
== END 2025-07-28 13:26 ==
PROVIDERS: Emergency Provider Emergency Medicine; PCP Internal Medicine; Visit Provider Emergency Medicine
DX: R45.851 Suicidal ideations (principal); E11.9 Type 2 diabetes mellitus without complications; I10 Essential (primary) hypertension; G47.33 Obstructive sleep apnea (adult) (pediatric); F32.A Depression, unspecified; F41.9 Anxiety disorder, unspecified; Z79.899 Other long term (current) drug therapy
CPT/HCPCS: 80053; 80307; 82077; 82962; 85025; 99285